=== PATIENT | female | born 1975 | race Caucasian/White ===

== ENCOUNTER 2021-09-01 22:46 | Emergency (ER) | payer MEDICAID ==
[~2021-09-01] VITALS: Ht 167.6 cm; Wt 79.0 kg
[2021-09-01] MEDS ORDERED: ZIPRASIDONE MESYLATE 20MG/VIAL IM STA (23:24)
[2021-09-01 23:39] LABS: BASOPHILS % 0.6 % (0.0-2.0); EOSINOPHILS % 0.7 % (0.0-5.0); LYMPHOCYTES % 17.6 % (20.0-50.0); MEAN CORPUSCULAR HEMOGLOBIN 30.1 pg (28.0-32.0); MEAN CORPUSCULAR VOLUME 90.6 fL (81.0-99.0); MEAN PLATELET VOLUME 7.9 fl (7.4-10.4); MONOCYTES % 7.4 % (2.0-8.0); NEUTROPHILS % 73.7 % (40.0-76.0); PLATELET 380 x1000/uL (130-400); RED BLOOD CELL COUNT 4.97 mill/uL (4.2-5.4); RED CELL DISTRIBUTION WIDTH 14.6 % (11.6-14.6)
[2021-09-01 23:45] LABS: CHLORIDE 106 mEq/L (98-107)
[2021-09-01 23:53] LABS: ETHANOL BLOOD < 10 mg/dL
[2021-09-02] MEDS ORDERED: POTASSIUM CHLORIDE 20MEQ TABLET SR PO NR ×2 (01:15→08:45)
[2021-09-02] MEDS: OLANZAPINE 5MG TABLET PO SCH (16:17)
[2021-09-02] MEDS ORDERED: OLANZAPINE 10 MG/VIAL IM ONE (21:15)
[2021-09-03 05:51] LABS: CLARITY URINE CLEAR (CLEAR); COLOR URINE YELLOW (YELLOW); KETONES URINE 1+ (NEGATIVE); LEUKOCYTE ESTERASE URINE 2+ (NEGATIVE); NITRITE URINE POSITIVE (NEGATIVE); OCCULT BLOOD URINE NEGATIVE (NEGATIVE); PH URINE 6.5 (4.5-8.0); PROTEIN URINE NEGATIVE (NEGATIVE); SPECIFIC GRAVITY URINE 1.009 (1.005-1.030); UROBILINOGEN URINE 0.2 E.U./dL (0.2-1.0)
[2021-09-03 06:03] LABS: *BARBITURATES SCREEN URINE NEGATIVE (NEGATIVE); *BENZODIAZEPINES SCREEN URINE NEGATIVE (NEGATIVE); *COCAINE SCREEN URINE NEGATIVE (NEGATIVE); CANNABINOID URINE SCREEN NEGATIVE (NEGATIVE); METHADONE URINE SCREEN NEGATIVE (NEGATIVE); OPIATES URINE SCREEN NEGATIVE (NEGATIVE); PHENCYCLIDINE URINE SCREEN NEGATIVE (NEGATIVE)
[2021-09-03 06:11] LABS: *AMPHETAMINES SCREEN URINE PRESUMTIVE POSITIVE (NEGATIVE)
[2021-09-03] MEDS: CEPHALEXIN 250MG CAPSULE PO SCH ×6 (07:51→20:50)
[2021-09-03] MEDS: OLANZAPINE 5MG TABLET PO SCH ×2 (07:51→17:15)
[2021-09-04] MEDS ORDERED: OLANZAPINE 5MG TABLET PO SCH (08:15)
[2021-09-04] MEDS: CEPHALEXIN 250MG CAPSULE PO SCH (08:51)
[2021-09-04] MEDS ORDERED: CEPH500C2 MT (11:16)
[2021-09-04 12:37] VITALS: BP 135/85
[2021-09-05] MEDS ORDERED: CEFTRIAXONE SODIUM 1 G/VIAL IM ONE (01:00)
== END 2021-09-04 12:39 | disposition home or self-care (01) ==
LOC: ER 22:46
DX: F29 Unspecified psychosis not due to a substance or known physiological condition (principal); N39.0 Urinary tract infection, site not specified; Z98.890 Other specified postprocedural states; Z20.822 Contact with and (suspected) exposure to COVID-19
CPT/HCPCS: 36415; 80053; 80305; 80307; 80320; 80329; 81001; 81025; 85025; 96372; 99285; C9803; J3486; J3490; U0003; U0005; 99283; G0480